=== PATIENT | male | born 1945 ===

== ENCOUNTER 2018-09-02 10:04 | Outpatient (CLI) | payer MEDICARE, OTHER ==
[~2018-09-02 10:04] MED LIST: AMLO-150 PO; LEVO50TA PO; SAW450CA7 PO
== END 2018-09-02 23:59 | disposition home or self-care (01) ==
LOC: RAD 10:04
PROVIDERS: ATTEND Nurse Practitioner Primary Care
DX: R13.10 Dysphagia, unspecified (principal)
CPT/HCPCS: 74230

== ENCOUNTER 2020-01-30 11:37 | Emergency (ER) | payer MEDICARE, OTHER ==
[~2020-01-30] VITALS: Ht 172.7 cm; Wt 97.9 kg
[2020-01-30 11:59] VITALS: BP 130/88
--- NOTE | 2020-01-30 12:09 | NUR ---
Pt complained of neck stiffness and pain, pt refused c-collar from this RN.
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
--- NOTE | 2020-01-30 12:38 | NUR ---
Patient/Caregiver given discharge instructions and they have confirmed that they understand the instructions. Patient ambulatory with steady gait.
== END 2020-01-30 14:21 | disposition home or self-care (01) ==
LOC: ED 14:20
DX: S46.812A Strain of other muscles, fascia and tendons at shoulder and upper arm level, left arm, initial encounter (principal); S40.212A Abrasion of left shoulder, initial encounter; S50.812A Abrasion of left forearm, initial encounter; V49.49XA Driver injured in collision with other motor vehicles in traffic accident, initial encounter; Y93.89 Activity, other specified; Y92.89 Other specified places as the place of occurrence of the external cause; Y99.8 Other external cause status; Z87.891 Personal history of nicotine dependence
CPT/HCPCS: 99283

== ENCOUNTER → 2021-02-06 | Outpatient (CLI) | payer MEDICARE, OTHER | END | disposition home or self-care (01) | LOC: LAB 08:02 | PROVIDERS: ATTEND Urology | DX: C61 Malignant neoplasm of prostate (principal) | CPT/HCPCS: 36415; 84153; G0103 ==